=== PATIENT | male | born 1965 | race Two or more races ===

== ENCOUNTER 2023-10-01 08:59 | Emergency (ER) | payer MEDICAID ==
[~2023-10-01] VITALS: Ht 167.6 cm; Wt 95.8 kg
[2023-10-01 11:00] VITALS: BP 140/85; PULSE 110; RESP 20; TEMP 98; O2SAT 95
[2023-10-01 11:41] LABS: Chloride 108 mmol/L (98-107); Potassium 3.7 mmol/L (3.5-5.1); Sodium 136 mmol/L (136-145)
[2023-10-01 11:42] LABS: Anion Gap 11 (5-15); Calcium 9.5 mg/dL (8.5-10.1); Carbon Dioxide 17 mmol/L (20-30)
[2023-10-01 11:47] LABS: BUN/Creatinine Ratio 12.4 (10.0-20.0); Blood Urea Nitrogen 11 mg/dL (9-23); Glucose 142 mg/dL (74-106)
[2023-10-01] MEDS ORDERED: IBUP1TAB5 PO (13:38)
== END 2023-10-01 13:47 | disposition home or self-care (01) ==
LOC: ER 08:59
DX: S02.831A Fracture of medial orbital wall, right side, initial encounter for closed fracture (principal); W18.39XA Other fall on same level, initial encounter; Y93.89 Activity, other specified; Y92.89 Other specified places as the place of occurrence of the external cause; Y99.8 Other external cause status
CPT/HCPCS: 36415; 70450; 70486; 80048; 82542